=== PATIENT | female | born 1990 | race Caucasian/White ===

== ENCOUNTER 2018-12-13 16:07 | Emergency (ER) | payer OTHER ==
[~2018-12-13] VITALS: Ht 162.6 cm; Wt 108.1 kg
--- NOTE | 2018-12-13 17:21 | NUR ---
URINE COLLECTED AND SENT TO LAB.
[2018-12-13 17:39] LABS: CULTURE INDICATED? NO; MICROSCOPIC NOT IND
--- NOTE | 2018-12-13 17:53 | NUR ---
TO ROOM FROM LOBBY. NAD.
[2018-12-13 17:55] LABS: BASOPHILS # (AUTO) 0.04 x10^3/uL (0-0.1); BASOPHILS % (AUTO) 0 % (0-1); EOSINOPHILS # (AUTO) 0.08 x10^3/uL (0-0.4); EOSINOPHILS % (AUTO) 1 % (1-7); LYMPHOCYTES # (AUTO) 3.71 x10^3/uL (1-3.4); LYMPHOCYTES % (AUTO) 34 % (22-44); MD NO; MEAN CORPUSCULAR HEMOGLOBIN 29.1 pg (27.0-34.8); MEAN CORPUSCULAR HGB CONC 34.3 g/dL (32.4-35.8); MEAN CORPUSCULAR VOLUME 84.7 fL (80-100); MEAN PLATELET VOLUME 8.8 fL (7.4-10.4); MONOCYTES # (AUTO) 0.68 x10^3/uL (0.2-0.8); MONOCYTES % (AUTO) 6 % (2-9); NEUTROPHILS # (AUTO) 6.54 x10^3/uL (1.8-6.8); NEUTROPHILS % (AUTO) 59 % (42-75); PLATELET COUNT 272 x10^3/uL (130-400); RED BLOOD COUNT 4.77 x10^6/uL (3.82-5.3); RED CELL DISTRIBUTION WIDTH 13.8 % (9.6-15.2)
[2018-12-13 18:07] LABS: CALCIUM 9.2 mg/dL (8.5-10.1); CHLORIDE 108 mmol/L (98-107)
[2018-12-13 18:15] LABS: ALANINE AMINOTRANSFERASE 28 U/L (12-78); ALBUMIN 3.7 g/dL (3.4-5.0); ALKALINE PHOSPHATASE 87 U/L (45-117); ANION GAP 6 mmol/L (5-15); BILIRUBIN,TOTAL 0.4 mg/dL (0.2-1.0); CREATININE 0.69 mg/dL (0.55-1.02); TOTAL PROTEIN 7.8 g/dL (6.4-8.2)
[2018-12-13] MEDS ORDERED: OMNIPAQUE 350 MG/ML, 100ML BOTTLE ONE (19:00)
--- NOTE | 2018-12-13 19:09 | NUR ---
PT BACK FROM CT
[2018-12-13] MEDS ORDERED: MORPHINE SULFATE 4 MG/ML, 1ML ONE (19:16)
[2018-12-13] MEDS ORDERED: ONDANSETRON 2MG/ML, 2ML ONE (19:16)
[2018-12-13] MEDS ORDERED: MORPHINE SULFATE 4 MG/ML, 1ML IVPush ONE (19:30)
[2018-12-13] MEDS ORDERED: ONDANSETRON 2MG/ML, 2ML IVPush ONE (19:30)
--- NOTE | 2018-12-13 19:56 | NUR ---
PT RESTING IN BED COMFORTABLY. PAIN IS NOW AT A TOLERABLE LEVEL PER PT.
[2018-12-13 20:55] VITALS: BP 103/55
== END 2018-12-13 20:57 | disposition home or self-care (01) ==
LOC: ED 18:19
DX: R10.31 Right lower quadrant pain (principal); R10.11 Right upper quadrant pain
CPT/HCPCS: 36415; 74177; 80053; 81003; 83690; 84703; 85025; 96374; 96375; 99284; J2405; Q9967

== ENCOUNTER 2020-05-27 11:43 | Outpatient (CLI) | payer OTHER ==
[~2020-05-27] VITALS: Ht 162.6 cm; Wt 113.2 kg
[2020-05-27 11:59] VITALS: BP 118/57
[2020-05-27] MEDS ORDERED: PREN1TAB60 PO (12:28)
== END 2020-05-27 13:15 | disposition home or self-care (01) ==
LOC: LDOP 11:43
PROVIDERS: ATTEND Student in an Organized Health Care Education/Training Program
DX: O36.8130 Decreased fetal movements, third trimester, not applicable or unspecified (principal); Z3A.32 32 weeks gestation of pregnancy
CPT/HCPCS: 59025

== ENCOUNTER → 2020-07-09 | Outpatient (CLI) | payer OTHER ==
[~2020-07-09] MED LIST: IBUP-1223 PO; PREN1TAB60 PO
== END | disposition home or self-care (01) ==
LOC: STAR 10:43
PROVIDERS: ATTEND Obstetrics & Gynecology
DX: Z01.812 Encounter for preprocedural laboratory examination (principal); Z20.828 Contact with and (suspected) exposure to other viral communicable diseases
CPT/HCPCS: 36415; 87635